=== PATIENT | male | born 1960 | race Two or more races ===

== ENCOUNTER → 2016-12-20 | Outpatient (CLI) | payer OTHER ==
--- NOTE | 2016-12-20 16:22 | CR ---
EXAMINATION: Right shoulder HISTORY: Pain COMPARISON: None TECHNIQUE: 3 views FINDINGS/IMPRESSION: There is no acute osseous abnormality, dislocation, or fracture identified. Bon e mineralization appears normal. Mild acromioclavicular osteoarthritic changes are present.
--- NOTE | 2016-12-21 15:43 | CR ---
EXAMINATION: Cervical and thoracic spine HISTORY: Pain COMPARISON: None TECHNIQUE: 3 views of the cervical and 2 views of the thoracic spine. FINDINGS: Cervical spine: The cervical spinal alignment appear grossly normal. Vertebral body heights appear m aintained. Large marginal osteophytes are noted at C5-C6. Facet alignment is preserved. Bone mineral ization is normal. No fracture or acute osseous abnormality. Prevertebral soft tissues appear normal . Thoracic spine: There is mild dextrocurvature of the thoracic spine. The vertebral body heights and disc spaces appear well-maintained. Mild marginal osteophytes are noted. Bone mineralization is norm al. No fracture or acute osseous abnormality. IMPRESSION: Degenerative changes without acute findings.
== END ==
LOC: MW.CHRC 14:13
PROVIDERS: ATTEND Family Medicine
DX: M25.511 Pain in right shoulder (principal); M54.6 Pain in thoracic spine; M19.011 Primary osteoarthritis, right shoulder
CPT/HCPCS: 72040; 72040-26; 72070; 72070-26; 73030-26-RT; 73030-RT